=== PATIENT | male | born 1940 | race Caucasian/White ===

== ENCOUNTER → 2016-08-01 | Outpatient (CLI) | payer MEDICARE, OTHER | END | disposition home or self-care (01) | LOC: LAB.O 09:09 | PROVIDERS: ATTEND Urology | DX: D35.02 Benign neoplasm of left adrenal gland (principal) ==

== ENCOUNTER → 2016-08-03 | Outpatient (CLI) | payer MEDICARE, OTHER | END | disposition home or self-care (01) | LOC: LAB.O 09:23 | PROVIDERS: ATTEND Urology | DX: D35.02 Benign neoplasm of left adrenal gland (principal) ==

== ENCOUNTER 2016-08-13 17:53 | Emergency (ER) | payer MEDICARE, OTHER ==
--- NOTE | 2016-08-13 18:50 | ED.PDOC ---
History of Present Illness - General Chief Complaint: Problem Time Seen by Provider: 08/13/16 18:25 Source: patient, RN notes reviewed Exam Limitations: no limitations Additional Information: Pt had a recent prostate surgery. He had an indwelling catheter placed. He came in to ER because unable to fill javed bag and he had pain in suprapubic region. Catheter irrigated and aspirated with removal of a large clot which led to free flow into javed bag and relief of symptoms. - History of Present Illness Timing/Duration: just prior to arrival Quality: moderate, cramping Onset Location: suprapubic Radiation: none Activites at Onset: none Prior abdominal problems: none Improving Factors: other - improved after aspiration of clot and return of free flow Worsening Factors: nothing Associated Symptoms: other - suprapubic pressure Allergies/Adverse Reactions: Allergies Acetaminophen [From Hydrocodone W/Acetaminophen] Allergy (Verified 02/17/14 10: 01) Hydrocodone [From Hydrocodone W/Acetaminophen] Allergy (Verified 09/26/14 10:36) Other itching reported Home Medications: Ambulatory Orders Loratadine 10 mg PO DAILY 02/17/14 Metoprolol Succinate [Metoprolol Succinate ER] 50 mg PO BID 02/17/14 Sotalol HCl 40 mg PO BID 02/17/14 Warfarin Sodium 2.5 mg PO DAILY 02/17/14 Warfarin Sodium 5 mg PO DAILY 02/17/14 Lisinopril 10 mg PO BID 09/26/14 Budesonide-Formoterol Fumarate [Symbicort] 1 aer IN DAILY 02/12/15 Pravastatin Sodium [Pravachol] 40 mg PO BEDTIME 02/12/15 Review of Systems - Review of Systems Constitutional: States: no symptoms reported EENTM: States: no symptoms reported Respiratory: States: no symptoms reported Cardiology: States: no symptoms reported Gastrointestinal/Abdominal: States: no symptoms reported Genitourinary: States: see HPI Musculoskeletal: States: no symptoms reported Skin: States: no symptoms reported Neurological: States: no symptoms reported Endocrine: States: no symptoms reported Hematologic/Lymphatic: States: no symptoms reported Past Medical History (General) - Patient Medical History Hx Seizures: No Hx Stroke: No Hx Dementia: No Hx Asthma: No Hx of COPD: Yes Hx Cardiac Disorders: Yes - A fib; Hx of vtach Hx Congestive Heart Failure: No Hx Pacemaker: No Hx Hypertension: Yes Hx Thyroid Disease: No Hx Diabetes: No Hx Gastroesophageal Reflux: No Hx Renal Disease: No Hx Cancer: Yes - basal cell carcinoma on left face Hx of HIV: No Hx Hepatitis C: No Hx MRSA: No - Vaccination History Hx Tetanus, Diphtheria Vaccination: No Hx Influenza Vaccination: No Hx Pneumococcal Vaccination: No - Social History Hx Tobacco Use: No Hx Chewing Tobacco Use: No Hx Alcohol Use: No Hx Substance Use: No Hx Substance Use Treatment: No Hx Depression: No Hx Physical Abuse: No Hx Emotional Abuse: No Hx Suspected Abuse: No - Female History Patient : No Family Medical History - Family History Father Living Status: Age at (years of age): 72 Hx Family Congestive Heart Failure: Yes Mother Living Status: Age at (years of age): 79 Hx Family Congestive Heart Failure: Yes Hx Family Cancer: Yes - breast cancer Sister Living Status: Age at (years of age): 56 Hx Family Cancer: Yes - breast Physical Exam - Physical Exam General Appearance: Agitated - initially. Resolved after aspiration of clot., Well Developed, Well Groomed, Well Hydrated, Well Nourished Eyes, Ears, Nose, Throat Exam: PERRL/EOMI, pharynx normal Neck: non-tender, full range of motion, supple Cardiovascular/Respiratory: normal peripheral pulses, no respiratory distress Gastrointestinal/Abdominal: non tender, soft Back Exam: normal inspection Extremity: normal range of motion, non-tender, normal inspection Neurologic: center receptionist II-XII nml as tested, no motor/sensory deficits, alert, normal mood/affect, oriented x 3 Skin Exam: normal color Lymphatic: no adenopathy Progress - Progress Progress: 08/13/16 18:53 Symptoms resolved after aspiration of clot from javed tubing. Pt stable for d/c home with strict return precautions. Pt scheduled to f/u with Urology in 2 days to have javed catheter removed. Departure - Departure Clinical Impression: Urinary catheter dysfunction Qualifiers: Encounter type: initial encounter Qualifier Code: (T83.018A) Breakdown ( mechanical) of other indwelling urethral catheter, initial encounter Time of Disposition: 18:52 Disposition: Discharge to Home or Self Care Condition: Good Departure Forms: ED Discharge - Pt. Copy, Patient Portal Self Enrollment Home Medications: Ambulatory Orders Loratadine 10 mg PO DAILY 02/17/14 Metoprolol Succinate [Metoprolol Succinate ER] 50 mg PO BID 02/17/14 Sotalol HCl 40 mg PO BID 02/17/14 Warfarin Sodium 2.5 mg PO DAILY 02/17/14 Warfarin Sodium 5 mg PO DAILY 02/17/14 Lisinopril 10 mg PO BID 09/26/14 Budesonide-Formoterol Fumarate [Symbicort] 1 aer IN DAILY 02/12/15 Pravastatin Sodium [Pravachol] 40 mg PO BEDTIME 02/12/15 Additional Instructions: Keep follow-up appointment as scheduled with Urology. Return to ER if condition recurs.
[2016-08-13 19:21] VITALS: BP 148/79; TEMP 98.2
[2016-08-13 19:26] VITALS: O2SAT 96
== END 2016-08-13 18:45 | disposition home or self-care (01) ==
LOC: ER 17:53
DX: T83.098A Other mechanical complication of other urinary catheter, initial encounter (principal); I48.91 Unspecified atrial fibrillation; J44.9 Chronic obstructive pulmonary disease, unspecified; I10 Essential (primary) hypertension; Z79.01 Long term (current) use of anticoagulants; Z79.899 Other long term (current) drug therapy; Z88.6 Allergy status to analgesic agent; Z85.828 Personal history of other malignant neoplasm of skin

== ENCOUNTER → 2017-04-17 | Outpatient (CLI) | payer MEDICARE, OTHER ==
--- NOTE | 2017-04-18 10:43 | CT ---
EXAM DESCRIPTION: Internal Auditory Canal CT CLINICAL HISTORY: HEARING LOSS COMPARISON: CT head January 29, 2015 TECHNIQUE: Pre and postcontrast CT images of the internal auditory canals are obtained with coronal and sagittal reconstructed images. This exam was performed according to our departmental dose-optimization program, which includes automated exposure control, adjustment of the mA and/or kV according to patient size and/or use of iterative reconstruction technique . FINDINGS: There is a soft tissue attenuation mass in the right cerebellopontine angle extending into the right internal auditory canal and expanding the IAC. This lesion measures at least 2.1 cm transverse by 1.1 cm AP by approximately 1.4 cm cranial caudal. This lesion does not show significant enhancement on the postcontrast images. Hounsfield units measure between 36 and 48 on postcontrast images and 28 through 50 on noncontrast images. No obvious bone destruction is seen. The cochlea and semicircular canals appear symmetric and unremarkable. Mastoid air cells are unremarkable. No mass or abnormal enhancement is seen in the left internal auditory canal. There is origin of the right posterior cerebral artery. No aneurysm or vascular malformation is seen. Visualized brain is unremarkable. Mild calcifications of the intracranial carotid arteries are seen. Visualized paranasal sinuses are unremarkable. There is mild mucosal thickening without complete opacification of some of the ethmoid air cells. IMPRESSION: There is a mostly soft tissue attenuation mass in the right cerebellopontine angle extending into the right internal auditory canal without significant enhancement on postcontrast imaging. 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 Correlate with any history of prior radiation therapy treatment. This lesion does not appear cystic on CT imaging. Mild atherosclerotic disease of the intracranial arterial vasculature. Electronically signed by: Newton Moore MD 04/18/2017 10:42 AM [facility]
== END | disposition home or self-care (01) ==
LOC: LAB.O 09:06
PROVIDERS: ATTEND Otolaryngology
DX: I48.91 Unspecified atrial fibrillation (principal); H90.A22 Sensorineural hearing loss, unilateral, left ear, with restricted hearing on the contralateral side

== ENCOUNTER → 2017-05-11 | Outpatient (CLI) | payer MEDICARE, OTHER ==
--- NOTE | 2017-05-12 04:23 | RAD ---
Examination: XR ANKLE 3 OR MORE VIEWS dated 05/11/2017 8:00 AM [facility] History: PAIN IN LEFT ANKLE Comparison: None Technique: Three views of the left ankle FINDINGS AND IMPRESSION: There is no acute fracture or dislocation of the left ankle. Ankle mortise is symmetric. Small plantar calcaneal spur. Vascular calcifications. Electronically signed by: Rainer Rodriguez MD 05/12/2017 4:21 AM [facility] [employer]
== END | disposition home or self-care (01) ==
LOC: RAD 08:01
PROVIDERS: ATTEND Orthopaedic Surgery
DX: M25.572 Pain in left ankle and joints of left foot (principal)

== ENCOUNTER → 2017-07-04 | Outpatient (CLI) | payer MEDICARE, OTHER ==
--- NOTE | 2017-07-06 09:58 | RAD ---
EXAM DESCRIPTION: Knee,Right Complete CLINICAL HISTORY: 77 years, Male, PAIN IN RIGHT KNEE COMPARISON: None TECHNIQUE: Four views of the right knee FINDINGS: Moderate degenerative changes involving the right knee, particularly the medial joint compartment with mild subchondral sclerosis and modest joint space narrowing and mild marginal osteophyte formation. Modest patellofemoral disease is noted as well as a small joint effusion in the suprapatellar bursa. Narrowing of the lateral patellofemoral articulation on axial imaging and mild subluxation of the patella laterally is noted. No fracture or dislocation is seen. IMPRESSION: 1. Small joint effusion and moderately advanced degenerative changes medial joint compartment and lateral articular surface of the patellofemoral articulation. Electronically signed by: Jl Benton MD 07/06/2017 9:57 AM [facility]
== END ==
LOC: RAD 14:00
PROVIDERS: ATTEND Orthopaedic Surgery
DX: M25.561 Pain in right knee (principal); M25.461 Effusion, right knee

== ENCOUNTER → 2017-07-06 | Outpatient (CLI) | payer MEDICARE, OTHER ==
--- NOTE | 2017-07-06 09:59 | RAD ---
EXAM DESCRIPTION: Ankle,Right 3 Views CLINICAL HISTORY: 77 years, Male, PAIN IN RIGHT ANKLE COMPARISON: None. TECHNIQUE: AP/lateral/oblique of the ankle FINDINGS: Three views of the right ankle demonstrate mild degenerative changes at the tip of the distal fibula and the medial malleolus with preserved ankle mortise. No fracture or dislocation or foreign body or intra-articular loose body noted. Vascular calcification in the posterior tibial and dorsalis pedis arteries noted. IMPRESSION: 1. Mild degenerative changes right ankle, otherwise normal study Electronically signed by: Jl Benton MD 07/06/2017 9:58 AM [employer] [facility]
== END ==
LOC: RAD 08:42
PROVIDERS: ATTEND Orthopaedic Surgery
DX: M17.11 Unilateral primary osteoarthritis, right knee (principal); M25.469 Effusion, unspecified knee; M25.571 Pain in right ankle and joints of right foot

== ENCOUNTER → 2017-08-02 | Outpatient (CLI) | payer MEDICARE, OTHER | LOC: LAB.O 07:52 | PROVIDERS: ATTEND Nurse Practitioner Adult Health | DX: I34.0 Nonrheumatic mitral (valve) insufficiency (principal); I34.1 Nonrheumatic mitral (valve) prolapse; I42.8 Other cardiomyopathies; I42.9 Cardiomyopathy, unspecified; I47.1 Supraventricular tachycardia; M10.00 Idiopathic gout, unspecified site; Z79.899 Other long term (current) drug therapy; Z12.5 Encounter for screening for malignant neoplasm of prostate | CPT/HCPCS: 36415; 80048; 80061; 80076; 80162; 84550; G0103 ==

== ENCOUNTER → 2018-01-03 | Outpatient (CLI) | payer MEDICARE, OTHER ==
--- NOTE | 2018-01-03 13:35 | CT ---
EXAM DESCRIPTION: Abdomen w/Contrast: Computed Tomography. CLINICAL HISTORY: GENERALIZED ABDOMINAL PAIN COMPARISON: None. TECHNIQUE: Spiral-axial scans at 5.0 mm intervals through the abdomen, after nonionic IV contrast. No oral contrast. Coronal and sagittal 2.0 mm reconstructions. No Delayed scans. No adverse reactions. Total Exam DLP: 886.93 mGy-cm. This exam was performed according to our departmental CT dose-optimization program which includes automated exposure control, adjustment of the mA and/or kV according to patient size and/or use of iterative reconstruction technique; to reduce radiation dose to as low as reasonably achievable (ALARA). FINDINGS: Lung bases and pleura: Pleural thickening versus small effusion on the left. Coronary artery stents and calcifications. Liver, Stomach, Spleen, Adrenal Glands: Small cyst inferior anterior right lobe of the liver. Also anterior subcapsular lateral segment left lobe. Moderately dilated stomach by gas. 3 x 2 cm diverticular-like mass with air-fluid level superior third portion of the duodenum, communicating with the lumen. This mass is also posterior to the uncinate process of the pancreatic head. No wall thickening of the mass which contains mostly fluid. Calcifications in the posterior wall of the duodenum opposite the diverticular opening. Inferior to the uncinate process and abutting the anterior duodenal wall is a fluid collection, somewhat ill-defined banda measuring approximately 4.9 cm transverse, 1 cm AP, and 1.3 cm craniocaudal. Heterogeneous enhancement of the fluid margins. This fluid also extends posteriorly to the duodenum alongside the segment of small bowel which is abutting the posterior duodenum. Fatty stranding and fascial thickening around the fluid. This segment of the duodenum shows wall thickening and irregular enhancement. Pancreas, Gallbladder, Ducts: Normal enhancement of the pancreas with no pseudocysts or adjacent fatty stranding or fascial thickening. Gallbladder and common bile duct are unremarkable. Kidneys: Small cyst anterior mid left kidney. 2 radiodense stones in the superior- mid collecting system of the right kidney measuring 7.4 mm, and 9 mm. No hydronephrosis. Proximal ureters are normal caliber. No perinephric or periureteral stranding. Mesentery: Abnormal fatty edema around the uncinate process and third portion of the duodenum as described above. Aorta: Moderate atherosclerotic calcification including the ostia of the major branch vessels and the proximal common iliacs. No aneurysm or stenosis. Small Bowel: Negative. Terminal Ileum/Cecum: Normal caliber. No appendix is seen at the tip of the cecum. Colon: Diverticula present just above the cecum to the distal colon. Fatty stranding extending to the abnormal fluid collection described above. Most likely in the mesocolon. No circumferential fatty stranding or fascial thickening around segments of colon. Spine: Minimal scoliosis with spondylosis L5-S1 L3-4 and lumbarized S1. Abdominal Wall/Back Soft Tissues: Fatty diastases at the umbilicus but not including bowel or abnormal mesentery. IMPRESSION: 1. Irregular fluid collection with minimal enhancement, most likely an abscess which is located between the anterior wall of the third segment of the duodenum in the uncinate process of the pancreas. Fluid also extends posteriorly and inferiorly to the duodenum. Duodenum demonstrates thickened banda and dilation at this segment. There is also a diverticular-like mass/diverticulum on the superior aspect of the duodenum adjacent to the abscess; remainder of the diverticula demonstrates thin banda. No pseudocyst or abnormal enhancement of the pancreas, or mesenteric changes adjacent to the remainder of the pancreas. Cannot exclude a duodenal ulcer, but there is no free air. 2. 2 radiodense stones 7 mm a 9 mm, in the upper mid collecting system right kidney with no hydronephrosis or perinephric stranding. Left renal small cysts. Otherwise negative. 3. Diverticulosis of the entire colon with no complications. Multiple levels of lumbar spine spondylosis. Moderate atherosclerotic calcification of the aorta. Coronary artery calcifications and stents. CRITICAL COMMUNICATION: The critical value was discussed directly by phone with Ms. Lillian Davis, nurse practitioner at approximately 1315 hours, on January 03, 2018. Electronically signed by: Tom Harding MD 01/03/2018 1:33 PM CDT
== END ==
LOC: CT 11:42
PROVIDERS: ATTEND Nurse Practitioner Family
DX: K57.30 Diverticulosis of large intestine without perforation or abscess without bleeding (principal); N20.0 Calculus of kidney; I70.0 Atherosclerosis of aorta; I25.10 Atherosclerotic heart disease of native coronary artery without angina pectoris; R10.84 Generalized abdominal pain

== ENCOUNTER → 2018-04-09 | Outpatient (CLI) | payer MEDICARE, OTHER | LOC: GMAJ 12:46 | PROVIDERS: ATTEND Family Medicine | DX: I48.91 Unspecified atrial fibrillation (principal) ==

== ENCOUNTER → 2018-06-19 | Outpatient (CLI) | payer MEDICARE, OTHER | LOC: GMAJ 11:09 | PROVIDERS: ATTEND Family Medicine | DX: M10.9 Gout, unspecified (principal) ==

== ENCOUNTER → 2018-08-12 | Outpatient (CLI) | payer MEDICARE, OTHER | LOC: SL 20:30 | PROVIDERS: ATTEND Internal Medicine | DX: G47.30 Sleep apnea, unspecified (principal) ==

== ENCOUNTER 2018-10-05 13:10 | Inpatient (IN) | payer MEDICARE, OTHER ==
--- NOTE | 2018-10-05 13:43 | HP ---
SUPERVISING PHYSICIAN: Sam Patricia M.D. CHIEF COMPLAINT: Coughing and generally feeling poorly. HISTORY OF PRESENT ILLNESS: This is an 78 year-old male patient who has had about 4 weeks of coughing and upper respiratory symptoms. He saw JENNIFER Duncan at [facility] approximately 3 weeks ago. She started him on Amoxicillin and a prednisone taper. He finished his prednisone taper about 5 days ago. He was seeing his primary care provider, Dr. Yap, yesterday for his INR check. His INR was greater than 5. Today, he came back to have his INR checked and he complained to Dr. Yap that his respiratory symptoms had not gone away. He has not had any fever but he continues to cough and feel very weak. He actually had dizziness and headache today. Dr. Ypa did a CBC and his white count was 14,000. His chest x-ray shows a left lower lobe pneumonia. I was called for direct admission from Dr. Yap' office. Right after admission, an INR was completed and it is 4.63 today. Electrolytes are basically within normal limits. BUN is 27, creatinine 1.43. His baseline creatinine is approximately 1. It is to be noted that the patient has a significant history of atrial fibrillation. He is on Sotalol and Coumadin. Several weeks ago his heart rate went up to the 90s and he had some digoxin that was previously prescribed that he no longer is taking, and he actually has been taking those for approximately 2 to 3 weeks. The dose is unknown. Blood cultures were drawn. Sputum culture was ordered. The pneumonia protocol was initiated and the patient was started on Rocephin and azithromycin with aggressive cardiac hygiene with Xopenex p.r.n. and scheduled nebulizer treatment. PAST MEDICAL HISTORY: 1. Benign prostatic hypertrophy. 2. Hyperlipidemia. 3. Atrial fibrillation followed by Dr. Layton in [place]. 4. Congestive heart failure, systolic in origin. His last echocardiogram was in 2013 but his ejection fraction was 45% by cardiac catheterization in 2019. 5. Chronic obstructive pulmonary disease diagnosed in 2013. 6. Diverticulosis. 7. Gout. 8. Osteoarthritis. 9. Depression with anxiety. PAST SURGICAL HISTORY: 1. Arthroscopy of the right knee. 2. Right hip replacement. 3. Pacemaker implantation times 2. 4. Hernia repair. 5. Transurethral resection of the prostate. CURRENT MEDICATIONS: ALLERGIES: ADHESIVE AND HYDROCODONE. THERE MAY BE A QUESTIONABLE ADVERSE REACTION TO AMOXICILLIN DUE TO A RASH. SOCIAL HISTORY: He is . He lives in [place]. He has 1 child. He is retired. Tobacco history is he smoked some in the over 35 years ago. He denies any ETOH or illicit drug use. REVIEW OF SYSTEMS: GENERAL: Positive for fatigue. Negative for fever or weight changes. HEENT: Positive for sinus symptoms. Negative for ear pain, vision changes or sore throat. RESPIRATORY: Positive for coughing, wheezing or shortness of breath. CARDIAC: Positive for palpitations about 3 weeks ago but has stopped since taking digoxin. Negative for chest pain or tachycardia. GASTROINTESTINAL: Negative for nausea, vomiting, diarrhea, constipation or abdominal pain. GENITOURINARY: Negative for hematuria, dysuria or polyuria. SKIN: Positive for a rash on the buttocks approximately 2-1/2 weeks ago may be due to Amoxicillin. Negative for lesions. NEUROLOGIC: Positive for weakness, dizziness and mild headaches. Negative for seizures. HEMATOLOGIC: Positive for an elevated INR but negative for any excessive bruising or bleeding problems. PHYSICAL EXAMINATION: VITAL SIGNS: Temperature 97.8, heart rate 80, blood pressure 99/62, respiratory rate 22, O2 sat is 96% on 2 liters nasal cannula. GENERAL: This is an 78 year-old male patient sitting in his hospital bed. He looks younger than his stated age. He is in mild respiratory distress. HEENT: Normocephalic and atraumatic. Pupils are equal and reactive. Oropharynx is clear. NECK: Supple without mass. RESPIRATORY: Some scattered wheezing throughout all lung hinojosa. Somewhat diminished at the bases. He is tachypneic. He does have to speak in short 2 to 3 word phrases due to his dyspnea. GASTROINTESTINAL: Abdomen is soft, nondistended, non-tender. Bowel sounds are positive. EXTREMITIES: No clubbing, cyanosis or edema. NEUROLOGIC: He is awake, alert and oriented times three. LABORATORY: All labs and films are per the History of Present Illness. ASSESSMENT: 1. Left lower lobe pneumonia most likely community acquired, failed outpatient therapy. He had previously been on Amoxicillin and a prednisone taper. 2. Atrial fibrillation on Warfarin for anticoagulation. He has a supratherapeutic PT and INR. 3. Leukocytosis most likely secondary to #1. 4. Acute on chronic renal failure with a baseline creatinine of 1. Today, it is 1.43. 5. History of gout. 6. Benign prostatic hypertrophy. 7. Congestive heart failure, systolic in etiology. His ejection fraction per cardiac catheterization in 2019 is 45%. There are no present signs or symptoms of exacerbation. 8. Hyperlipidemia on statin therapy. PLAN: I have admitted the patient to the hospital. I started the pneumonia guidelines. I put him on Xopenex both scheduled and p.r.n. nebulizer treatments. I will restart his home medications as soon as they are verified, except for the Warfarin and will hold on that for now. I will recheck his PT and INR in the morning and restart it when he has become therapeutic. I will give him 1 liter of judicious IV fluids. I have also started him on azithromycin and Rocephin. He is on a PPI for ulcer prophylaxis. I have also done a digoxin level. I will not restart the digoxin and he can followup with Dr. Layton or Dr. Yap to clarify if he needs to be restarted on it. Will continue to monitor closely and follow as needed. #[id number] [facility]
[2018-10-05] MEDS ORDERED: LEVALBUTEROL NEBS 1.25 MG/3 ML VIAL INH PRN (13:54)
[2018-10-05] MEDS ORDERED: SODIUM CHLORIDE 0.9% (FLUSH) 10 ML SYG IV PRN (13:54)
[2018-10-05] MEDS ORDERED: ACETAMINOPHEN 325 MG TAB PO PRN (13:54)
[2018-10-05] MEDS: IV SET AND CAP CHANGE INJ INJ SCH (14:00)
[2018-10-05] MEDS: AZITHROMYCIN IV 500 MG in SODIUM CHLORIDE 0.9% 250ML 250 ML IVPB SCH (14:55)
[2018-10-05] MEDS ORDERED: SODIUM CHL 0.9% 50ML MIN-BAG+ 50 ML IVPB ONE (15:20)
[2018-10-05] MEDS ORDERED: SODIUM CHLORIDE 0.9% 250ML 250 ML ONE ×2 (15:20→15:28)
[2018-10-05] MEDS ORDERED: cefTRIAXone SODIUM 1 GM VIAL ONE (15:21)
[2018-10-05] MEDS ORDERED: AZITHROMYCIN IV 500 MG VIAL IVPB ONE ×2 (15:21→15:28)
[2018-10-05] MEDS: cefTRIAXone SODIUM 1 GM in SODIUM CHL 0.9% 50ML MIN-BAG+ 50 ML IVPB SCH (15:26)
[2018-10-05] MEDS: LEVALBUTEROL NEBS 1.25 MG/3 ML VIAL INH SCH ×2 (15:59→20:45)
[2018-10-05] MEDS ORDERED: PRAVASTATIN SODIUM 20 MG TAB ONE (20:26)
[2018-10-05] MEDS ORDERED: PANTOPRAZOLE SODIUM IV 40 MG VIAL ONE (20:27)
[2018-10-05] MEDS ORDERED: METOPROLOL SUCCINATE XL 25 MG TAB PO ONE (20:27)
[2018-10-05] MEDS: METOPROLOL SUCCINATE XL 50 MG TAB PO SCH (20:45)
[2018-10-05] MEDS: SOTALOL 80 MG TAB PO SCH (20:45)
[2018-10-05] MEDS ORDERED: NON-FORMULARY MEDICATION 1 EA MIS (Pravastatin Sodium [Pravachol] 40 MG) PO SCH (21:00)
[2018-10-06] MEDS ORDERED: POTASSIUM CHLORIDE 10 MEQ TAB PO ONE (06:32)
[2018-10-06] MEDS: FUROSEMIDE 40 MG TAB PO SCH ×2 (06:35→12:59)
[2018-10-06] MEDS: PANTOPRAZOLE SODIUM IV 40 MG VIAL IV SCH (06:35)
--- NOTE | 2018-10-06 06:59 | RAD ---
EXAM DESCRIPTION: 2 views of the chest CLINICAL HISTORY: Pneumonia COMPARISON: 01/09/2016 FINDINGS: Frontal and lateral views of the chest. Left-sided pacemaker. Cardiomegaly. Tortuosity of the thoracic aorta. Atherosclerotic calcification of the thoracic aorta. Low lung volumes. No pneumothorax or definite pleural effusion. Left basilar airspace opacity. No acute osseous abnormalities. Upper abdominal soft tissues are unremarkable. IMPRESSION: 1. Left basilar airspace opacity may be related to atelectasis or developing pneumonic process. Electronically signed by: Michael Corral 10/06/2018 6:57 AM CDT
[2018-10-06] MEDS ORDERED: NON-FORMULARY MEDICATION 1 EA MIS (Potassium Chloride [Potassium Chloride Er] 10 MEQ) PO SCH (07:00)
[2018-10-06] MEDS ORDERED: methylPREDNISolone SODIUM SUC 125 MG/2 ML VIAL IV ONE (08:55)
[2018-10-06] MEDS: LEVALBUTEROL NEBS 1.25 MG/3 ML VIAL INH SCH ×4 (08:57→20:34)
[2018-10-06] MEDS: NON-FORMULARY MEDICATION 1 EA MIS (Fluticasone-Umeclidinium-Vilan [Trelegy Ellipta 100-62. IN SCH (08:57)
[2018-10-06] MEDS: ISOSORBIDE MONONITRATE (IMDUR) 30 MG TAB PO SCH (09:21)
[2018-10-06] MEDS: LORATADINE 10 MG TAB PO SCH (09:21)
[2018-10-06] MEDS: METOPROLOL SUCCINATE XL 50 MG TAB PO SCH ×2 (09:21→20:51)
[2018-10-06] MEDS: SOTALOL 80 MG TAB PO SCH ×2 (09:29→20:51)
[2018-10-06] MEDS: POTASSIUM CHLORIDE 10 MEQ TAB PO SCH (12:59)
[2018-10-06] MEDS: ALLOPURINOL 300 MG TAB PO SCH (12:59)
[2018-10-06] MEDS ORDERED: AZITHROMYCIN IV 500 MG VIAL IVPB ONE (13:44)
[2018-10-06] MEDS ORDERED: SODIUM CHLORIDE 0.9% 250ML 250 ML ONE (13:44)
[2018-10-06] MEDS: methylPREDNISolone SODIUM SUC 125 MG/2 ML VIAL IV SCH ×2 (13:54→21:25)
[2018-10-06] MEDS: AZITHROMYCIN IV 500 MG in SODIUM CHLORIDE 0.9% 250ML 250 ML IVPB SCH (13:54)
[2018-10-06] MEDS ORDERED: SODIUM CHL 0.9% 50ML MIN-BAG+ 50 ML IVPB ONE (15:43)
[2018-10-06] MEDS ORDERED: cefTRIAXone SODIUM 1 GM VIAL ONE (15:43)
[2018-10-06] MEDS: cefTRIAXone SODIUM 1 GM in SODIUM CHL 0.9% 50ML MIN-BAG+ 50 ML IVPB SCH (16:00)
--- NOTE | 2018-10-06 19:12 | PN ---
DATE: 10/06/18 SUPERVISING PHYSICIAN: Sam Patricia M.D. SUBJECTIVE: The patient is sitting up in bed. He still has some shortness of breath and coughing, but it has improved since yesterday. We discussed that he should not take his digoxin until he talks to Dr. Yap as his digoxin level was somewhat high yesterday, although it normalized today. He has had no complaints of chest pain or nausea or vomiting. I have encouraged him to get up and ambulate with assistance. OBJECTIVE: VITAL SIGNS: Temperature 97.8, heart rate 78, blood pressure 109/69, respiratory rate 18, O2 sat is 94%. It has gone down as low as 88%. RESPIRATORY: Scattered rhonchi throughout, somewhat diminished at the bases. He does have a few expiratory wheezes but they mostly clear with coughing. He is tachypneic and visibly short of breath with conversation. He does have to speak in 3 to 4 word phrases due to his shortness of breath. CARDIAC: Regular rate and rhythm. GASTROINTESTINAL: Abdomen is soft, nondistended, non-tender. Bowel sounds are positive. NEUROLOGIC: He is awake, alert and oriented times three. LABORATORY: WBCs have normalized to 10,100 with hemoglobin 13.4, hematocrit 42.3. INR is 3.16. Electrolytes are basically within normal limits with the exception of his chloride is slightly low at 100, BUN is slightly high at 23. His digoxin level was 2.4 yesterday, it is 1.2 today. Preliminary blood cultures are negative to date. Chest x-ray shows left basilar airspace opacity, may be related to atelectasis or developing pneumonic process. All other labs and films have been reviewed via the EMR. ASSESSMENT: 1. Left lower lobe pneumonia most likely community acquired, failed outpatient therapy. He had previously been on Amoxicillin and a prednisone taper. 2. Atrial fibrillation on Warfarin for anticoagulation. He has a supratherapeutic PT and INR. 3. Leukocytosis most likely secondary to #1. 4. Acute on chronic renal failure with a baseline creatinine of 1 on admission. It was 1.43, today it is 0.99. 5. History of gout. 6. Benign prostatic hypertrophy. 7. Congestive heart failure, systolic in etiology. His ejection fraction per cardiac catheterization in 2019 is 45%. There are no present signs or symptoms of exacerbation. 8. Hyperlipidemia on statin therapy. 9. Digoxin toxicity. His digoxin level was 2.4 on admission and today it has normalized to 1.2. PLAN: We will continue present supportive care. He will continue on the pneumonia protocol with aggressive pulmonary hygiene, including his nebulizers. Will continue on his antibiotics. I have tapered his steroids. Will repeat his PT and INR in the morning. Hopefully we can start his Coumadin back tomorrow. Will also repeat a lab and chest x-ray in the morning. I have told him not to start his digoxin until he speaks with Dr. Yap on discharge. His heart rate has been in the 70s for the most part since he has been admitted. His home medications have been restarted. Will continue to monitor closely and follow as needed. #[id number] [facility]
[2018-10-06] MEDS: PRAVASTATIN SODIUM 20 MG TAB PO SCH (20:49)
[2018-10-06] MEDS: SODIUM CHLORIDE 0.9% (FLUSH) 10 ML SYG IV SCH (20:50)
[2018-10-06] MEDS: TEMAZEPAM 15 MG CAP PO PRN (20:52)
[2018-10-07] MEDS: methylPREDNISolone SODIUM SUC 125 MG/2 ML VIAL IV SCH (06:40)
[2018-10-07] MEDS: PANTOPRAZOLE SODIUM IV 40 MG VIAL IV SCH (06:40)
[2018-10-07] MEDS: FUROSEMIDE 40 MG TAB PO SCH ×2 (06:41→12:08)
[2018-10-07] MEDS: POTASSIUM CHLORIDE 10 MEQ TAB PO SCH ×2 (06:41→12:08)
--- NOTE | 2018-10-07 07:16 | RAD ---
EXAM DESCRIPTION: Chest,2 Views CLINICAL HISTORY: 78 years Male pna COMPARISON: Two-view chest dated 10/06/2018 TECHNIQUE: PA and lateral views of the chest are obtained. Heart: The heart is mildly enlarged. A left subclavian transvenous transvenous pacemaker/defibrillator apparatus is in place with leads terminating in the right atrium and right ventricle. Vasculature: [There is mild tortuosity and atherosclerosis of the aorta. ]There is no evidence of aortic aneurysm or acute findings. The pulmonary vascularity is normal. Mediastinum: Unremarkable otherwise. No evidence of mass or adenopathy. Lungs: There is mild peribronchial thickening bilaterally. There is a small area of patchy alveolar opacification in the left lower lung laterally again noted consistent with minimal focal atelectasis and/or pneumonia Pleural spaces: Noted again is a small left pleural effusion without significant right pleural fluid There are no pneumothoraces. Osseous structures: There is no evidence of acute fracture, osseous destruction or osteoblastic lesions. Tubes and catheters: None Upper abdomen: No acute findings. Chest wall: Unremarkable. IMPRESSION: Mild cardiomegaly and minimal left pleural fluid may indicate fluid overload. Minimal patchy atelectasis and/or pneumonia also suspected in the left lung base, unchanged. Electronically signed by: Gerri Larsen MD 10/07/2018 7:14 AM CDT
[2018-10-07] MEDS: NON-FORMULARY MEDICATION 1 EA MIS (Fluticasone-Umeclidinium-Vilan [Trelegy Ellipta 100-62. IN SCH (08:09)
[2018-10-07] MEDS: LEVALBUTEROL NEBS 1.25 MG/3 ML VIAL INH SCH ×4 (08:09→20:59)
[2018-10-07] MEDS: SOTALOL 80 MG TAB PO SCH ×2 (08:09→20:47)
[2018-10-07] MEDS: ISOSORBIDE MONONITRATE (IMDUR) 30 MG TAB PO SCH (08:09)
[2018-10-07] MEDS: METOPROLOL SUCCINATE XL 50 MG TAB PO SCH ×2 (08:10→20:47)
[2018-10-07] MEDS: LORATADINE 10 MG TAB PO SCH (08:10)
[2018-10-07] MEDS: SODIUM CHLORIDE 0.9% (FLUSH) 10 ML SYG IV SCH ×2 (08:11→20:48)
[2018-10-07] MEDS: BIFIDOBACTERIUM INFANTIS 4 MG CAP PO SCH ×2 (11:00→20:48)
[2018-10-07] MEDS: WARFARIN SODIUM 3 MG TAB PO SCH (12:08)
[2018-10-07] MEDS: ALLOPURINOL 300 MG TAB PO SCH (12:08)
[2018-10-07] MEDS ORDERED: cefTRIAXone SODIUM 1 GM VIAL ONE (12:58)
[2018-10-07] MEDS ORDERED: SODIUM CHLORIDE 0.9% 250ML 250 ML ONE (12:58)
[2018-10-07] MEDS ORDERED: SODIUM CHL 0.9% 50ML MIN-BAG+ 50 ML IVPB ONE (12:58)
[2018-10-07] MEDS ORDERED: AZITHROMYCIN IV 500 MG VIAL IVPB ONE (12:59)
[2018-10-07] MEDS: methylPREDNISolone SODIUM SUC 40 MG/ML VIAL IV SCH ×2 (13:34→22:33)
[2018-10-07] MEDS: AZITHROMYCIN IV 500 MG in SODIUM CHLORIDE 0.9% 250ML 250 ML IVPB SCH (13:35)
--- NOTE | 2018-10-07 15:03 | PN ---
DATE: 10/07/18 SUPERVISING PHYSICIAN: Sam Patricia M.D. SUBJECTIVE: The patient is sitting up in his bed. He still feels quite weak and short of breath. He did walk in the hallways yesterday and I have encouraged him to continue doing so. He denies any chest pain, nausea, vomiting, diarrhea or constipation. OBJECTIVE: VITAL SIGNS: Temperature 98.5, heart rate 77, blood pressure 101/62, respiratory rate 20 to 24, O2 sat 91% on 2 liters nasal cannula. RESPIRATORY: A few scattered rhonchi throughout, somewhat diminished at the bases. There is not expiratory wheezing or crackles today. He is tachypneic at times and has to speak in 3 to 4 word phrases due to his shortness of breath. CARDIAC: Regular rate and rhythm. GASTROINTESTINAL: Abdomen is soft, nondistended, non-tender. Bowel sounds are positive. EXTREMITIES: No clubbing, cyanosis or edema. NEUROLOGIC: He is awake, alert and oriented times three. LABORATORY: WBCs are 12,500 with hemoglobin 12.2, hematocrit 38.8. He does have a left shift on differential. INR is 2.27 today. Electrolytes are basically within normal limits. BUN 24, creatinine 1.06. Sputum culture is pending. Preliminary blood cultures show no growth after 24 hours. Chest x-ray shows mild cardiomegaly and minimal left pleural fluid, may indicate fluid overload. Minimal patchy atelectasis and/or pneumonia also suspected in the left lung base, unchanged. All other labs and films have been reviewed via the EMR. ASSESSMENT: 1. Left lower lobe pneumonia most likely community acquired, failed outpatient therapy. He had previously been on Amoxicillin and a prednisone taper. 2. Atrial fibrillation on Warfarin for anticoagulation. He had a supratherapeutic PT and INR on admission. It is now therapeutic at 2.27. Will restart his Warfarin. 3. Leukocytosis most likely secondary to #1. It continues to be elevated but may be due to steroid administration. 4. Acute on chronic renal failure with a baseline creatinine of 1 on admission. It was 1.43, today it is 0.99. 5. History of gout. 6. Benign prostatic hypertrophy. 7. Congestive heart failure, systolic in etiology. His ejection fraction per cardiac catheterization in 2019 is 45%. There are no present signs or symptoms of exacerbation. 8. Hyperlipidemia on statin therapy. 9. Digoxin toxicity. His digoxin level was 2.4 on admission. It was down to 1.2 yesterday. He is no longer taking digoxin. PLAN: We will continue present supportive care. I have titrated his Solu- Medrol down and have started him on oral steroids tomorrow. Repeated his lab and chest x-ray in the morning. Lab will include an INR as we have restarted his Warfarin at his normal dosing of 3 mg. I have also added Align and asked that the patient not be disturbed at the midnight vital sign reading. He is having a difficult time sleeping. I have encouraged him to ambulate frequently in the halls. Hopefully he can be discharged tomorrow or the next day with close followup with Dr. Yap. #[id number] [facility]
[2018-10-07] MEDS: cefTRIAXone SODIUM 1 GM in SODIUM CHL 0.9% 50ML MIN-BAG+ 50 ML IVPB SCH (15:34)
[2018-10-07] MEDS: TEMAZEPAM 15 MG CAP PO PRN (20:47)
[2018-10-07] MEDS: PRAVASTATIN SODIUM 20 MG TAB PO SCH (20:47)
[2018-10-08] MEDS: methylPREDNISolone SODIUM SUC 40 MG/ML VIAL IV SCH (06:21)
[2018-10-08] MEDS ORDERED: PANTOPRAZOLE SODIUM TAB 40 MG PO SCH (06:30)
[2018-10-08] MEDS: POTASSIUM CHLORIDE 10 MEQ TAB PO SCH ×2 (06:32→12:00)
[2018-10-08] MEDS: FUROSEMIDE 40 MG TAB PO SCH ×2 (06:32→12:00)
[2018-10-08] MEDS ORDERED: predniSONE 20 MG TAB ONE (06:57)
--- NOTE | 2018-10-08 07:21 | RAD ---
Study: Frontal and Lateral Radiographs of the Chest. Indication: pna Comparison: October 07, 2016. Impression: Cardiac pacemaker. Cardiomegaly. Patchy mild basilar opacities redemonstrated and slightly improved compared to the prior. Continued follow-up recommended. Tiny left pleural effusion redemonstrated. No pneumothorax. Osteopenia. If this is a new finding, DEXA scan recommended as well as evaluation for possible osteoporosis treatment. Electronically signed by: Wilfredo Cortes MD 10/08/2018 7:19 AM CDT
[2018-10-08] MEDS: METOPROLOL SUCCINATE XL 50 MG TAB PO SCH (08:00)
[2018-10-08] MEDS: BIFIDOBACTERIUM INFANTIS 4 MG CAP PO SCH (08:00)
[2018-10-08] MEDS: ISOSORBIDE MONONITRATE (IMDUR) 30 MG TAB PO SCH (08:00)
[2018-10-08] MEDS: LORATADINE 10 MG TAB PO SCH (08:00)
[2018-10-08] MEDS: SODIUM CHLORIDE 0.9% (FLUSH) 10 ML SYG IV SCH (08:01)
[2018-10-08] MEDS: SOTALOL 80 MG TAB PO SCH (08:01)
[2018-10-08] MEDS: NON-FORMULARY MEDICATION 1 EA MIS (Fluticasone-Umeclidinium-Vilan [Trelegy Ellipta 100-62. IN SCH (08:32)
[2018-10-08] MEDS: LEVALBUTEROL NEBS 1.25 MG/3 ML VIAL INH SCH ×2 (08:32→11:45)
[2018-10-08] MEDS ORDERED: predniSONE 20 MG TAB PO SCH (09:00)
[2018-10-08] MEDS: WARFARIN SODIUM 3 MG TAB PO SCH (11:57)
[2018-10-08] MEDS: ALLOPURINOL 300 MG TAB PO SCH (11:58)
[2018-10-08] MEDS ORDERED: FUROSEMIDE INJ 20 MG/2 ML VIAL IV ONE (12:09)
[2018-10-08] MEDS ORDERED: SODIUM CHLORIDE 0.9% 250ML 250 ML ONE (13:24)
[2018-10-08] MEDS ORDERED: AZITHROMYCIN IV 500 MG VIAL IVPB ONE (13:25)
[2018-10-08] MEDS: AZITHROMYCIN IV 500 MG in SODIUM CHLORIDE 0.9% 250ML 250 ML IVPB SCH (13:33)
[2018-10-08] MEDS: IV SET AND CAP CHANGE INJ INJ SCH (13:37)
[2018-10-08 13:55] VITALS: BP 113/71; TEMP 97.6; O2SAT 92
--- NOTE | 2018-10-10 08:36 | DS ---
SUPERVISING PHYSICIAN: Anna Chun MD ADMISSION DIAGNOSIS: 1. Left lower lobe pneumonia most likely community acquired, failed outpatient therapy. He had previously been on Amoxicillin and a prednisone taper. 2. Atrial fibrillation on Warfarin for anticoagulation. He has a supratherapeutic PT and INR. 3. Leukocytosis most likely secondary to #1. 4. Acute on chronic renal failure with a baseline creatinine of 1. Today, it is 1.43. 5. History of gout. 6. Benign prostatic hypertrophy. 7. Congestive heart failure, systolic in etiology. His ejection fraction per cardiac catheterization in 2019 is 45%. There are no present signs or symptoms of exacerbation. 8. Hyperlipidemia on statin therapy. DISCHARGE DIAGNOSIS: 1. Left lower lobe pneumonia, community acquired, having failed to respond to outpatient treatment, showing improvement with parenteral antibiotic and corticosteroids. 2. Atrial fibrillation on warfarin therapy with a therapeutic INR on discharge. 3. Acute on chronic renal failure, likely due to prerenal azotemia with the patient showing baseline levels at discharge. 4. History of gout. 5. Benign prostatic hypertrophy. 6. Congestive heart failure, systolic etiology with ejection fraction via catheterization in 2019 of 45% without any signs or symptoms of exacerbation during hospitalization. 7. Hyperlipidemia on statin therapy. 8. Digoxin toxicity with initial level of 2.4, showing to be therapeutic prior to discharge, as he was self-administering and no longer to be taking digoxin. REASON FOR HOSPITALIZATION: This is an 78 year-old male patient who has had about 4 weeks of coughing and upper respiratory symptoms. He saw JENNIFER Duncan at [facility] approximately 3 weeks ago. She started him on Amoxicillin and a prednisone taper. He finished his prednisone taper about 5 days ago. He was seeing his primary care provider, Dr. Yap, yesterday for his INR check. His INR was greater than 5. Today, he came back to have his INR checked and he complained to Dr. Yap that his respiratory symptoms had not gone away. He has not had any fever but he continues to cough and feel very weak. He actually had dizziness and headache today. Dr. Yap did a CBC and his white count was 14,000. His chest x-ray shows a left lower lobe pneumonia. I was called for direct admission from Dr. Yap' office. Right after admission, an INR was completed and it is 4.63 today. Electrolytes are basically within normal limits. BUN is 27, creatinine 1.43. His baseline creatinine is approximately 1. It is to be noted that the patient has a significant history of atrial fibrillation. He is on Sotalol and Coumadin. Several weeks ago his heart rate went up to the 90s and he had some digoxin that was previously prescribed that he no longer is taking, and he actually has been taking those for approximately 2 to 3 weeks. The dose is unknown. Blood cultures were drawn. Sputum culture was ordered. The pneumonia protocol was initiated and the patient was started on Rocephin and azithromycin with aggressive cardiac hygiene with Xopenex p.r.n. and scheduled nebulizer treatment. LABORATORY: CBC showed white count 10,100. At discharge, it was 18,400, however, he was on high-dose corticosteroids. Hemoglobin and hematocrit were stable at 12.3 and 38.7 respectively. Platelet count 155,000. Differential did show a left shift. Coagulation studies initially showed INR 4.63. Prior to discharge, INR was down to 2.1. Chemistries showed normal electrolytes on admission. At discharge, BUN 30, creatinine 1.35. Magnesium was normal at 2.0. Liver functions all within normal limits. Urinalysis showed just trace intact blood, otherwise within normal limits. Digoxin level was 2.4 on admission. After taken off digoxin, repeat digoxin level on 10/06/18 was 1.2. MICROBIOLOGY: Sputum culture showed mixed normal respiratory giovany. Blood cultures remained negative after 4 days. RADIOLOGY: Chest x-ray after admission per radiologic interpretation showed left basilar airspace opacity. Final chest x-ray on 10/08/18 per radiologic interpretation showed patchy mild basilar opacity slightly improved compared previous exam on 10/07/18. Please see that report for full details. HOSPITAL COURSE: Mr. Sahni was admitted on 10/05/18 for exacerbation of chronic obstructive pulmonary disease secondary to left lower pneumonia having to respond to outpatient treatment measures. He was initiated on aggressive pulmonary hygiene and antibiotics to include azithromycin and Rocephin. He did show a digoxin level that was toxic, however, he was not supposed to be taking digoxin. That was held and he was no longer showing toxic levels prior to discharge. He also showed a supratherapeutic INR which after better control with holding through hospitalization was therapeutic at discharge. He was showing good clinical response to treatment although he did require very aggressive management with corticosteroids, but was near baseline levels prior to discharge and was felt well enough clinically to continue with outpatient management. PLAN: Mr. Sahni was discharged on 10/08/18 with instructions to followup with Dr. Yap in 7 to 10 days. He was to resume his home medications as instructed and start new medications as directed. He was told to return to the hospital should he have any concerning symptoms. Diet at discharge was regular diet as tolerated. Activity to increase as tolerated. NEW MEDICATIONS AT DISCHARGE: 1. Omnicef 300 mg twice daily, #14. 2. Ten-day tapering prednisone 10 mg packet to take as directed. All other medications prior to hospitalization were continued except for the digoxin, which he was not supposed to be taking in the first place. He was reminded not to start that back. He certainly probably would benefit from referral to pulmonary rehab. He was doing well on CPAP at night. DISPOSITION: The patient was discharged home to care of family members. CONDITION AT DISCHARGE: Stable and improving. #[id number] [facility]
== END 2018-10-08 16:00 | disposition home or self-care (01) | DRG 194 ==
LOC: MS 13:10
PROVIDERS: ADMIT Family Medicine; ATTEND Nurse Practitioner Acute Care
DX: J18.1 Lobar pneumonia, unspecified organism (principal); N17.9 Acute kidney failure, unspecified; I50.22 Chronic systolic (congestive) heart failure; J44.1 Chronic obstructive pulmonary disease with (acute) exacerbation; J44.0 Chronic obstructive pulmonary disease with (acute) lower respiratory infection; I48.91 Unspecified atrial fibrillation; R79.1 Abnormal coagulation profile; R21 Rash and other nonspecific skin eruption; R79.89 Other specified abnormal findings of blood chemistry; T46.0X5A Adverse effect of cardiac-stimulant glycosides and drugs of similar action, initial encounter; N18.9 Chronic kidney disease, unspecified; M10.9 Gout, unspecified; M19.90 Unspecified osteoarthritis, unspecified site; N40.0 Benign prostatic hyperplasia without lower urinary tract symptoms; F32.9 Major depressive disorder, single episode, unspecified; F41.9 Anxiety disorder, unspecified; E78.5 Hyperlipidemia, unspecified; Z96.641 Presence of right artificial hip joint; Z79.899 Other long term (current) drug therapy; Z79.01 Long term (current) use of anticoagulants; Y92.009 Unspecified place in unspecified non-institutional (private) residence as the place of occurrence of the external cause; Z95.0 Presence of cardiac pacemaker; Z88.0 Allergy status to penicillin; Z88.5 Allergy status to narcotic agent; Z87.891 Personal history of nicotine dependence